=== PATIENT | female | born 1950 | race American Indian/Alaskan Native ===

== ENCOUNTER 2017-07-02 09:43 | Outpatient (CLI) | payer BC ==
--- NOTE | 2017-07-02 11:20 | Mammography Report ---
Bilateral mammogram: Compared to 06/26/16. CAD study utilized. Findings: Heterogeneous breast parenchyma bilaterally. No mass or microcalcification. Focal new asymmetry/architectural distortion subareolar right breast. Normal axilla. Impression: Focal asymmetry/architectural distortion subareolar right breast. Recommend tomosynethesis. BI-RADS CATEGORY: 0 = Needs additional imaging evaluation ACR BI-RADS MAMMOGRAPHIC CODES: 0 = Needs additional imaging evaluation; 1 = Negative; 2 = Benign; 3 = Probably benign; 4 = Suspicious; 5 = Malignant; 6 = Known biopsy-proven malignancy COMMENT: 1. Dense breast tissue, i.e., adenosis, fibrocystic changes, etc., may obscure an underlying neoplasm. 2. Approximately 10% of cancers are not detected with mammography. 3. A negative mammography report should not delay biopsy if a clinically suspicious mass is present. COMMENT: [facility].
== END 2017-07-02 09:44 | disposition home or self-care (01) ==
LOC: MAMMO 09:43
PROVIDERS: ATTEND Family Medicine Adult Medicine
DX: Z12.31 Encounter for screening mammogram for malignant neoplasm of breast (principal)
CPT/HCPCS: 77067; G0202

== ENCOUNTER 2018-03-22 10:48 | Outpatient (CLI) | payer MEDICARE ==
--- NOTE | 2018-03-22 16:47 | Mammography Report ---
RIGHT DIGITAL DIAGNOSTIC MAMMOGRAM with CAD and DIGITAL BREAST TOMOSYNTHESIS (DBT) and RIGHT BREAST ULTRASOUND: 03/22/18 10:48:00 CLINICAL: Six month followup for mammographic asymmetries. COMPARISON:08/20/17 FINDINGS: The breast is heterogeneously dense, which may obscure small masses.A previously identified outer partially circumscribed outer periareolar mammographic asymmetry is stable on the CC view. A portion of the margin is rounded and a portion is angular. No definite correlation on the orthogonal view. An irregular inner asymmetry slightly larger but there is no definite correlation on orthogonal series. A circumscribed triangular shaped asymmetry with central lucency on the MLO series is stable. Several oval circumscribed densities are also stable. The non-omid mammographic views are stable. Ultrasound of the right breast (including all four quadrants and the retroareolar area) was performed and demonstrated no mass, cyst or shadowing to correlate with mammographic asymmetries. A benign cyst at four clock 2 cm from the nipple measures 3 mm. A benign cyst at 8 o'clock near the nipple measures 3 mm. IMPRESSION: Stable probably benign mammographic asymmetries with no ultrasound correlation. BI-RADS CATEGORY: 3--Probably Benign RECOMMENDATION: Six month followup bilateral diagnostic mammogram with tomosynthesis and right breast ultrasound if needed. COMMENT: Patient follow-up letters are generated by our [employer] application.
== END 2018-03-22 10:49 | disposition home or self-care (01) ==
LOC: SPVWC 10:48
PROVIDERS: ATTEND Family Medicine Adult Medicine
DX: R92.2 Inconclusive mammogram (principal)
CPT/HCPCS: 76641; 77065; G0279

== ENCOUNTER 2019-05-17 09:04 | Outpatient (CLI) | payer MEDICARE ==
--- NOTE | 2019-05-18 09:49 | Mammography Report ---
DIGITAL SCREENING MAMMOGRAM WITH CAD, 05/17/2019 INDICATION: Routine screening mammography. TECHNIQUE: Digital bilateral 2D mammography was obtained in the craniocaudal and mediolateral obliq ue projections. This examination was interpreted with the benefit of Computer-Aided Detection analysi s. COMPARISON: 03/22/2018 and 07/02/2017 FINDINGS: Breast Density: The breasts are heterogeneously dense, which may obscure small masses. There is no evidence of dominant mass, suspicious calcifications or architectural distortion in the l eft breast. A right asymmetry on the CC view requires additional imaging. No architectural distortion or suspicious calcifications of the right breast. IMPRESSION: Right asymmetry requiring additional imaging. Recommend recall for right ML, exaggerated CC and spot compression CC views and right breast ultrasound if needed. Follow up recommendation: Special View: Spot Category 0: Incomplete. Needs additional imaging evaluation and/or prior mammograms for comparison. A "normal" or negative report should not discourage follow up or biopsy of a clinically significant f inding. A written summary of these findings will be mailed to the patient. The patient will be entered into a mammography reporting system which will generate a reminder letter for the patient's next appointmen t at the appropriate interval. The [employer] recommends yearly mammograms starting at age 40 and continuing as l supa as a woman is in good health. Breast MRI is recommended for women with an approximate 20-25% or greater lifetime risk of breast cancer, including women with a strong family history of breast or ova lane cancer or who have been treated for Hodgkin's disease. Signer Name: Stu Burnhma MD Signed: 05/18/2019 9:45 AM Workstation Name: [id number]
== END 2019-05-17 09:05 | disposition home or self-care (01) ==
LOC: MAMMO 09:04
PROVIDERS: ATTEND Family Medicine Adult Medicine
DX: Z12.31 Encounter for screening mammogram for malignant neoplasm of breast (principal)
CPT/HCPCS: 77067

== ENCOUNTER 2019-06-10 09:09 | Outpatient (CLI) | payer MEDICARE ==
--- NOTE | 2019-06-13 09:49 | Ultrasound Report ---
RIGHT DIGITAL DIAGNOSTIC MAMMOGRAM WITH CAD -- 06/10/2019 RIGHT LIMITED BREAST ULTRASOUND INDICATION: Recalled for asymmetry. TECHNIQUE: Digital right mammographic imaging was performed. Spot compression views were obtained. T his examination was interpreted with the benefit of Computer-Aided Detection (CAD) analysis. COMPARISON: 05/17/2019 screening mammogram FINDINGS: Breast Density: The breasts are heterogeneously dense, which may obscure small masses. MAMMOGRAPHIC FINDINGS: There is no evidence of dominant mass, suspicious calcifications or architectu ral distortion in the right breast. Satisfactory effacement of asymmetry on spot images. Exaggerated CC and lateral views are negative. ULTRASOUND FINDINGS: Targeted ultrasound evaluation was performed of the area of interest. Ultrasou nd of the outer breast was performed from 6:00 to 12:00 and demonstrated a slightly irregular cluster of cysts at 6:00 3 cm from the nipple. This cluster measures 7 x 4 x 4 mm. No other cyst and no radha d mass. IMPRESSION: Negative mammogram and a benign 7 mm cluster of cysts in the right breast at 6:00 by ultr asound. Follow up recommendation: Routine yearly BI-RADS Category 2: Benign. A "normal" or negative report should not discourage follow up or biopsy of a clinically significant f inding. A written summary of these findings will be mailed to the patient. The patient will be entered into a mammography reporting system which will generate a reminder letter for the patient's next appointmen t at the appropriate interval. According to the [employer], yearly mammograms are recommended starting at age 40 and continuing as long as a woman is in good health. Breast MRI is recommended for women with an ifeanyi roximately 20-25% or greater lifetime risk of breast cancer, including women with a strong family his tory of breast or ovarian cancer and women who have been treated for Hodgkin's disease. Signer Name: Stu Burnham MD Signed: 06/13/2019 9:45 AM Workstation Name: [id number]
== END 2019-06-10 09:10 | disposition home or self-care (01) ==
LOC: MAMMO 09:09
PROVIDERS: ATTEND Family Medicine Adult Medicine
DX: R92.8 Other abnormal and inconclusive findings on diagnostic imaging of breast (principal)

== ENCOUNTER 2020-09-12 12:31 | Outpatient (CLI) | payer MEDICARE ==
--- NOTE | 2020-09-12 13:57 | Mammography Report ---
DIGITAL SCREENING MAMMOGRAM WITH CAD, 09/12/2020 CLINICAL INFORMATION / INDICATION: Routine screening mammography. TECHNIQUE: Digital bilateral 2D mammography was obtained in the craniocaudal and mediolateral obliqu e projections. This examination was interpreted with the benefit of Computer-Aided Detection analysis . COMPARISON: 05/17/2019 FINDINGS: Breast Density: The breasts are heterogeneously dense, which may obscure small masses. No dominant mass, suspicious calcifications, or architectural distortion in the left breast. There is a new oval partially well-circumscribed mass in the right breast, 4:00 location, middle depth. This will need further evaluation with ultrasound. The density identified on the 2019 mammogram in the lat eral right breast is no longer present. IMPRESSION: New 6 mm mass right breast, 4:00. Recommend further evaluation with right breast ultrasou nd. Follow up recommendation: Ultrasound BI-RADS Category 0: Incomplete. Needs additional imaging evaluation and/or prior mammograms for robert rison. A "normal" or negative report should not discourage follow up or biopsy of a clinically significant f inding. A written summary of these findings will be mailed to the patient. The patient will be entered into a mammography reporting system which will generate a reminder letter for the patient's next appointmen t at the appropriate interval. The [employer] recommends yearly mammograms starting at age 40 and continuing as l supa as a woman is in good health. Breast MRI is recommended for women with an approximate 20-25% or greater lifetime risk of breast cancer, including women with a strong family history of breast or ova lane cancer or who have been treated for Hodgkin's disease. Signer Name: Laure Contreras MD Signed: 09/12/2020 1:52 PM Workstation Name: [email or web address]
== END 2020-09-12 12:32 | disposition home or self-care (01) ==
LOC: MAMMO 12:31
PROVIDERS: ATTEND Family Medicine Adult Medicine
DX: Z12.31 Encounter for screening mammogram for malignant neoplasm of breast (principal); N63.14 Unspecified lump in the right breast, lower inner quadrant
CPT/HCPCS: 77067

== ENCOUNTER 2021-12-06 11:24 | Outpatient (CLI) | payer MEDICARE, BC ==
--- NOTE | 2021-12-09 12:24 | Mammography Report ---
DIGITAL SCREENING MAMMOGRAM WITH CAD, 12/06/2021 CLINICAL INFORMATION / INDICATION: Routine screening mammography. TECHNIQUE: Digital bilateral 2D mammography was obtained in the craniocaudal and mediolateral obliqu e projections. This examination was interpreted with the benefit of Computer-Aided Detection analysis . COMPARISON: 09/12/2020, 06/10/2019, 05/17/2019, 03/22/2018 FINDINGS: Breast Density: The breasts are heterogeneously dense, which may obscure small masses. No dominant mass, suspicious calcifications, or architectural distortion in either breast. Minimal circumscribed right breast nodularity is again noted and has not significantly changed. IMPRESSION: No mammographic evidence of malignancy. Follow up recommendation: Routine yearly BI-RADS Category 2: BENIGN. A "normal" or negative report should not discourage follow up or biopsy of a clinically significant f inding. A written summary of these findings will be mailed to the patient. The patient will be entered into a mammography reporting system which will generate a reminder letter for the patient's next appointmen t at the appropriate interval. The [employer] recommends yearly mammograms starting at age 40 and continuing as l supa as a woman is in good health. Breast MRI is recommended for women with an approximate 20-25% or greater lifetime risk of breast cancer, including women with a strong family history of breast or ova lane cancer or who have been treated for Hodgkin's disease. Signer Name: Beatriz Katz MD Signed: 12/09/2021 12:19 PM Workstation Name: [email or web address]
== END 2021-12-06 11:25 | disposition home or self-care (01) ==
LOC: MAMMO 11:24
PROVIDERS: ATTEND Physician Assistant
DX: Z12.31 Encounter for screening mammogram for malignant neoplasm of breast (principal)
CPT/HCPCS: 77067